=== PATIENT | female | born 1980 | race Caucasian/White ===

== ENCOUNTER 2021-02-22 16:54 | Emergency (ER) | payer SELFPAY ==
--- NOTE | 2021-02-22 17:00 | NUR ---
Attempted to triage pt, pt was not found in ER waiting room or outside ER.
== END 2021-02-22 17:25 | disposition left against medical advice (07) ==
LOC: ER 17:17
DX: Z53.21 Procedure and treatment not carried out due to patient leaving prior to being seen by health care provider (principal)